=== PATIENT | female | born 1995 | race Caucasian/White ===

== ENCOUNTER 2017-06-14 17:09 | Emergency (ER) | payer OTHER ==
[~2017-06-14] VITALS: Ht 167.6 cm; Wt 44.0 kg
[~2017-06-14 17:09] MED LIST: ACETAMINOPHEN PO; BACTRIM 400-801 TA1 PO; BACTRIM DS TABL1 TA1 PO; BACTRIM DS TABL1 TA2 PO; CATAFLAM50 MG PO; CLINDAMYCIN HC300 MG PO; DELSYM30 MG/5 ML PO; DEPO-PROVER150 MG/ML INJ; ELIMITE60 GM TOP; KEFLEX500 M2 PO; MACROBID100 MG PO; NAPROSYN500 MG PO; NO MEDICATIONS; PHENERGAN25 M1 PO; PRENATAL1 TA1 PO; PYRIDIUM PO; PYRIDIUM100 MG PO; RONDEC DROPS30 ML PO; RONDEC-DM ORAL30 ML PO; ZITHROMAX PO; ZOFRANODT PO; ZOFRANODT SL
== END 2017-06-14 18:40 | disposition home or self-care (01) ==
LOC: CFTX 17:09 → CED 17:09 → CFTX 18:20
DX: L30.9 Dermatitis, unspecified (principal); F17.200 Nicotine dependence, unspecified, uncomplicated; Z88.0 Allergy status to penicillin; Z88.5 Allergy status to narcotic agent
CPT/HCPCS: 99282

== ENCOUNTER 2017-06-27 00:27 | Emergency (ER) | payer OTHER ==
--- NOTE | ~2017-06-27 | CR261 ---
[facility] A Service of [facility] RADIOLOGY TEXT RESULTS PATIENT: KALIE RAMEY LOCATION: [facility] : [birth year] UNIT #: [id number] AGE: [address]: Diaz Quick MD SEX: F ORDER DR: [id number] [facility] [address] [place], [place] [address] [id number] E MR#: [id number] Acc #: [id number] NAME: KALIE RAMEY : 1995 SEX: F STUDY DATE/TIME: 06/27/2017 01:18 UNIT: [facility] ROOM: STUDY DESCRIPTION: CR Toe 2 Views [address] R[address] Attending Physician: Diaz Quick Ordering Physician: Ed Doc Brionna Crisostomo Primary Care Physician: Primary Care Physician No MEDICAL IMAGING REPORT This report is preliminary unless electronic signature is present EXAM Right fifth toe, 06/27/2017 at 0118 hours INDICATIONS Laceration today on the fifth digit. Foot pain. FINDINGS 3 views of the left fifth ray were obtained. No acute fractures are identified. A small radiopaque density noted in the distal end of the toe on the lateral side. This could be chronic. Correlate with site of injury. IMPRESSION No fracture. Tiny radiopaque density near the distal end of the toe on the lateral side could be on or within the skin. Correlate with the site of laceration. Dictated by... Geraldo Matthew Jr., M.D. THIS IS AN ELECTRONICALLY VERIFIED REPORT Geraldo Matthew Jr., M.D. at 06/28/2017 3:13 AM ANGELA/tj TD: 06/27/2017 20:48 JOB #: [id number] MEDICAL IMAGING REPORT Page 1 of 1 COPY
== END 2017-06-27 02:59 | disposition home or self-care (01) ==
LOC: CED 00:27
DX: S91.114A Laceration without foreign body of right lesser toe(s) without damage to nail, initial encounter (principal); F17.210 Nicotine dependence, cigarettes, uncomplicated; Z98.890 Other specified postprocedural states; W20.8XXA Other cause of strike by thrown, projected or falling object, initial encounter; Z23 Encounter for immunization
CPT/HCPCS: 12001; 73660; 90715; 99283